=== PATIENT | female | born 1950 | race Caucasian/White ===

== ENCOUNTER 2017-10-16 07:07 | Day surgery (SDC) | payer MEDICARE, OTHER ==
--- NOTE | 2017-10-13 12:46 | HP ---
AMENDED REPORT NOW INCLUDES COSIGNER DESIGNATION - ESIGNED BEFORE ADJUSTMENTS CC: Dr. Rekha Plata * PREOPERATIVE HISTORY AND PHYSICAL: DATE OF ADMISSION: 10/16/17 This patient is scheduled for same-day surgery admission by Dr. Wilkinson on , 10/16/17. DATE OF PREOPERATIVE HISTORY AND PHYSICAL: 10/13/17 ATTENDING SURGEON: Dr. Bari Wilkinson * (dictated by Madison Alves NP). CHIEF COMPLAINT: Right breast cancer. HISTORY OF PRESENT ILLNESS: The patient is a 67-year-old female referred to Dr. Wilkinson from Dr. Plata with a newly diagnosed right breast cancer. This was found on screening mammography. 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 She has not had previous breast biopsies or breast conditions and is not on any hormonal therapy. She has no family history of breast or ovarian cancer. She was age 14 when she had her first menstrual period and her first live was at age 21 and she did not breast feed. Dr. Wilkinson reviewed the findings with the patient and described the nature of breast cancer and the various surgical options; the patient has opted for sono-guided needle localization and wide excision of the right breast cancer and a sentinel lymph node biopsy. Dr. Wilkinson described the nature of the surgical procedure, the relevant risks and benefits, and today I reviewed the expected postoperative care and recovery. The patient has had a chance to ask questions and stated that she understands the information and is satisfied with the answers given to her questions. She will surgical consent on the day of surgery. 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 PAST SURGICAL HISTORY: Left upper lobectomy of the lung, July 2013; bronchoscopy by Dr. Wilkinson, 2012; LASIK surgery; section, 1971. OB HISTORY: 1, para 1. She is postmenopausal at age 62. MEDICATIONS: 1. Losartan 50 mg 1 p.o. daily at bedtime. 2. Triamterene/hydrochlorothiazide 37.5/25 mg p.o. daily in the morning. 3. Omeprazole 20 mg p.o. daily in the morning. 4. Symbicort 160/45 one puff daily in the morning. 5. Lovastatin 40 mg p.o. daily in the evening. 6. Lumigan eye drop, 1 drop in the right eye every evening. 7. Macey 180 mg p.o. daily in the evening. She is on the following supplements: 1. Multivitamin. 2. Calcium plus vitamin D3. 3. Flaxseed oil. She takes all of her morning medications with 2 ounces of aloe water. ALLERGIES: VORICONAZOLE tablets caused loss of muscle control in her arms; LATEX, STERI-STRIPS, and OTHER TAPES have caused an inflamed rash. FAMILY HISTORY: Mother with a history of deep vein thrombosis, CVA, and heart disease, at age 93. Father with a history of ulcers, due to adverse effect of contrast dye at age 74. No known breast or ovarian cancer in the family. The patient's sister is due to lung cancer. SOCIAL HISTORY: She is and retired; she is a nonsmoker. She drinks 1 or 2 alcoholic beverages per week and denies the use of substances. REVIEW OF SYSTEMS: Constitutional: No fevers, chills, excessive fatigue, or weight loss. Endocrine: No diabetes or thyroid disease or hormone replacement. Hematologic: No easy bruising or bleeding. No history of blood transfusions. Breasts: As described in history of present illness, abnormal right breast. Respiratory: History of malignant carcinoid left lung; no dyspnea on exertion, no chronic cough. Cardiovascular: No anginal chest pain or palpitations. Gastro-intestinal: No nausea, vomiting, diarrhea, GI bleeding , or constipation. Genitourinary: No dysuria. Musculoskeletal: No complaints of back or joint pain. Integumentary: She reports an allergic-type rash with Steri-Strips after the recent stereotactic biopsy of the right breast. No current inflammation or ulcerations or infection. Neurologic: No headache, blurred vision. No areas of focal weakness or numbness. General: No previous anesthesia complications, no history of deep vein thrombosis, or pulmonary embolism. PHYSICAL EXAMINATION GENERAL SURVEY: The patient is a 67-year-old female, well-developed, well- nourished, overweight, in no acute distress. VITAL SIGNS: Height 63 inches, weight 206 pounds, body mass index 36.5. Blood pressure 124/80, pulse 74 and regular, respiratory rate 18, temperature 97.8 tympanic. HEENT: Benign. NECK: Supple. No cervical lymphadenopathy. No supraclavicular lymphadenopathy. LUNGS: Breath sounds bilaterally clear and equal. BACK: No CVA tenderness. BREASTS: Symmetrical without skin or nipple changes. The right breast site of the biopsy is well-healed without any signs of infection. There is no palpable mass in the right breast. There is no palpable mass in the left breast. There is no palpable axillary adenopathy bilaterally. There is no nipple discharge bilaterally. HEART: Regular rate and rhythm. No murmurs or rubs appreciated. ABDOMEN: Active bowel sounds, soft, nondistended, nontender throughout. PELVIC AND RECTAL: Exams deferred. EXTREMITIES: Warm without edema or skin ulceration. NEUROLOGIC: Alert and oriented x3. Steady gait. SKIN: Warm, dry, and intact. IMPRESSION: Right breast cancer. PLAN: Same-day surgery admission to Dr. Wilkinson's service on , 10/16/17 , for sono-guided needle localization, wide excision of right breast cancer, and sentinel lymph node biopsy. ESTHELA ALVES NP [id number]/[facility] #: [id number] [place]
[~2017-10-16 07:07] MED LIST: Buffered Lidocaine 0.9% SYRIN* 5 ML/SYR SYRINGE INTRADERM ONE
[2017-10-16] MEDS ORDERED: Lidocaine 2.5%/Prilocain 2.5%* 5 GM TUBE ONE (07:43)
[2017-10-16] MEDS ORDERED: ceFAZolin 2 GM PREMIX (*) 2 GM/50 ML BAG IVPB ONE (10:39)
[2017-10-16] MEDS ORDERED: Heparin VIAL(*) 5000 UNITS/ML VIAL (FIVE THOUSAND) ONE (10:39)
[2017-10-16] MEDS ORDERED: Lidocaine 1% INJ* 10 MG/ML 30 ML SDV ONE (10:49)
[2017-10-16] MEDS ORDERED: Bupivacaine 0.25% W/EPI* 10 ML SDV ONE (10:50)
--- NOTE | 2017-10-16 11:18 | RAD ---
INDICATION: Right breast cancer COMPARISON: 1 year localization same date TECHNIQUE/FINDINGS: Informed consent was obtained. A routine timeout protocol was utilized. The right breast was prepped in usual fashion and 4 intradermal injections in the periareolar region were made. A total of 0.30 mCi of technetium 99m sulfur colloid was utilized. A sentinel node was promptly visualized and the node marked on the skin surfaces. Images were sent with the patient to the preoperative holding area. The patient tolerated the procedure well IMPRESSION: SUCCESSFUL SENTINEL NODE SCAN
[2017-10-16] MEDS ORDERED: Midazolam* 1 MG/ML 5 ML VIAL (5 MG) ONE (12:38)
[2017-10-16] MEDS ORDERED: fentaNYL* 50 MCG/ML 2 ML VIAL (100 MCG VIAL) ONE (12:52)
[2017-10-16] MEDS ORDERED: Dexamethasone IV* 4 MG/ML 1 ML (4 MG) ONE (13:17)
[2017-10-16] MEDS ORDERED: Ondansetron INJ* 2 MG/ML VIAL ONE (13:33)
[2017-10-16] MEDS ORDERED: Ondansetron INJ* 2 MG/ML VIAL IV PRN (13:35)
[2017-10-16] MEDS ORDERED: Naloxone* 0.4 MG/ML 1 ML VIAL IV PRN (13:35)
[2017-10-16] MEDS ORDERED: HYDROmorphone INJ* 0.5 MG/0.5 ML SYRINGE IV PRN (13:35)
[2017-10-16] MEDS ORDERED: fentaNYL* 50 MCG/ML 2 ML VIAL (100 MCG VIAL) IV PRN (13:35)
[2017-10-16] MEDS ORDERED: HYDROcodone/ACETAMIN 5-325 MG* 1 TAB PO PRN (13:35)
[2017-10-16] MEDS ORDERED: oxyCODONE TAB* 5 MG TAB PO PRN (13:35)
--- NOTE | 2017-10-16 13:40 | RAD ---
INDICATION: Right breast carcinoma COMPARISON: Mammogram October 02, 2017 TECHNIQUE/FINDINGS: Informed consent was obtained. A routine timeout protocol was utilized. The right breast was prepped in usual fashion and from a cephalad approach the microclip and nodule in the superolateral right breast was localized without difficulty with a 7.5 cm Gandara wire. The patient tolerated the procedure well. The subsequent specimen radiograph demonstrated the wire, mass, and microclip within the specimen. IMPRESSION: SUCCESSFUL WIRE NEEDLE LOCALIZATION OF THE NODULE. THE NODULE IS IN THE SPECIMEN.
[2017-10-16 15:28] VITALS: BP 132/71
--- NOTE | 2017-10-16 22:40 | OP ---
CC: Dr. Rekha Plata; [facility] * DATE OF OPERATION: 10/16/17 - [facility] DATE OF : 52 SURGEON: Bari Wiklinson MD [employer] MED[employer] SERGEANT: Madison Hernandez NP ANESTHESIOLOGIST: Vicente Jiang MD ANESTHESIA: General anesthetic, local infiltration. PRE-OP DIAGNOSIS: Right breast cancer. POST-OP DIAGNOSIS: Right breast cancer. OPERATIVE PROCEDURE: Needle localizing wire and excision of right breast cancer with sentinel lymph node biopsies. DESCRIPTION OF PROCEDURE: The patient was supine on the operative room table. After adequate general anesthetic, compression stockings, Jennifer Hugger warmer, and intravenous antibiotics, the right breast, neck and axillary region were prepped with antiseptic, draped in a sterile fashion. Local infiltrative anesthesia was administered. An elliptical incision of approximately 2 x 5 cm was created in the region of the guidewire and a piece of breast tissue approximately 5 x 5 x 4 cm in size was removed. This was marked with usual localizing sutures long, lateral, medium medial, and short superior. The wire seemed to be closed at the deep lateral area, so additional piece of tissue was taken from the deep lateral aspect and marked with a suture of the true margin. Hemostasis was obtained using electro-cautery and closure was accomplished using 3-0 and 5-0 Vicryl followed by a dressing. In the axilla, approximately 4-cm incision was created and a cluster of nodes was identified that was extremely hot. This was dissected free and it appeared to be 3 separate nodes. The first one sentinel node #1 had count of 1300, sentinel node #2 count of 2900 and sentinel node #3 count of 300. The basin count at that point was less than 10. Hemostasis was obtained using cautery or ligature and closure accomplished with 3-0 and 5-0 Vicryl followed by a sterile dressing. She tolerated the procedure well, was awakened and brought to Recovery in good condition. No complications. No drains. Pathologic specimens as above. Sponge and instrument counts correct. Estimated blood loss 30 to 50 mL. [id number]/[facility] #: [id number] [facility] CENTERRosanna
== END 2017-10-16 15:33 | disposition home or self-care (01) ==
LOC: SDS 07:07
PROVIDERS: ATTEND Surgery
DX: C50.911 Malignant neoplasm of unspecified site of right female breast (principal); Z85.110 Personal history of malignant carcinoid tumor of bronchus and lung; I10 Essential (primary) hypertension; E78.5 Hyperlipidemia, unspecified; Z68.36 Body mass index [BMI] 36.0-36.9, adult
CPT/HCPCS: 78195; 88307; 88342; A9270-GY; A9541; J0690; J1100; J1644; J2250; J2405; J3010

== ENCOUNTER 2019-02-10 06:31 | Day surgery (SDC) | payer MEDICARE, OTHER ==
[2019-02-10] MEDS ORDERED: fentaNYL* 50 MCG/ML 2 ML VIAL (100 MCG VIAL) ONE (07:55)
[2019-02-10] MEDS ORDERED: Midazolam* 1 MG/ML 2 ML VIAL (2 MG) ONE (07:56)
[2019-02-10 09:04] VITALS: BP 135/66
--- NOTE | 2019-02-10 10:01 | OP ---
OPERATIVE NOTE: DATE OF OPERATION: 02/10/19. DATE OF : 52. SURGEON: Michael Pereira M.D. PREOPERATIVE DIAGNOSES: 1. Cataract right eye. 2. Glaucoma, right eye. POSTOPERATIVE DIAGNOSES: 1. Cataract right eye. 2. Glaucoma, right eye. OPERATIVE PROCEDURE: Extracapsular cataract extraction with intraocular lens implant right eye and i Stent. PROCEDURE: The patient was brought to the operating room after being given 1/2% Alcaine with epineph rine drops in the preoperative area. The eye was prepped and draped in the usual sterile fashion. S terile drape and eyelid speculum were placed. Again, topical 1/2% Alcaine with epinephrine was given . A paracentesis incision was made at the 9 o'clock position with the No.75 blade. Clear cornea inc ision 2.2 x 2.2-mm was created at the 12 o'clock position starting at the anterior limbus using the 2 .2-mm keratome. The anterior chamber was irrigated with 0.4 mL of 1% non-preservative intracameral l idocaine and filled with DisCoVisc. A capsulorrhexis was completed using the cystotome and the Utrat a forceps. Hydrodissection was performed with balanced salt solution. The lens nucleus was removed w ith the Phacoemulsification handpiece without incident. Cortex was removed with the irrigation-aspir ation handpiece. The capsular bag was re-inflated using DisCoVisc and an [id number] implant was inser tiffanie with the shooter. IOL power confirmed with ORA followed by an iStent inject inserted at the 2 o' clock and 4 o'clock positions with its shooter. With the irrigation-aspiration handpiece was used to remove all residual DisCoVisc. The eye was refilled with balanced salt solution and the wound checke d and found to be watertight. Topical Maxitrol drops were given. [id number]/[facility] #: [id number]
[2019-02-10] MEDS ORDERED: Lidocaine 1% MPF ** 5 ML VIAL ONE (14:55)
[2019-02-10] MEDS ORDERED: Cyclopentolate 1% OPTH.SOL* 2 ML BTL ONE (14:55)
[2019-02-10] MEDS ORDERED: Povidone Iodine 5% OPTH* 30 ML BTL ONE (14:55)
[2019-02-10] MEDS ORDERED: Proparacaine 0.5% OPHTH.SOL* 15 ML BTL ONE (14:55)
[2019-02-10] MEDS ORDERED: Lidocaine 2% w/ EPI 1:200,000* 20 ML SDV VIAL ONE (14:55)
[2019-02-10] MEDS ORDERED: Neomycin/Polymy/Dex OPTH.SUSP* MAXITROL 0.1% 5 ML ONE (14:55)
[2019-02-10] MEDS ORDERED: Phenylephrine OPHTH SOL 2.5%* 2 ML ONE (14:55)
[2019-02-10] MEDS ORDERED: acetaZOLAMIDE TAB* 250 MG ONE (14:55)
[2019-02-10] MEDS ORDERED: Ketorolac 0.5% OPHTH (NF) 0.5 % 5 ML BTL ONE (14:55)
== END 2019-02-10 09:05 | disposition home or self-care (01) ==
LOC: OREAST 06:31
PROVIDERS: ATTEND Specialist
PROC: 08RJ3JZ Replacement of Right Lens with Synthetic Substitute, Percutaneous Approach (ICD-10-PCS; principal; 2019-02-10 08:30)
DX: H25.11 Age-related nuclear cataract, right eye (principal); H40.1111 Primary open-angle glaucoma, right eye, mild stage; I10 Essential (primary) hypertension; K21.9 Gastro-esophageal reflux disease without esophagitis; E78.00 Pure hypercholesterolemia, unspecified; Z85.3 Personal history of malignant neoplasm of breast; Z85.110 Personal history of malignant carcinoid tumor of bronchus and lung
CPT/HCPCS: A9270-GY; C1783; J2250; J3010; V2632